=== PATIENT | female | born 2000 | race African-American/Black ===

== ENCOUNTER 2022-11-14 18:43 | Emergency (ER) | payer SELFPAY ==
[2022-11-14 19:36] LABS: Bilirubin Neg (Negative); Blood, Urine 150 (Negative); Glucose, Urine (Dipstick) Normal (Negative); Ketone, Urine Negative (Negative); Leukocyte 500 (Negative); Nitrite Negative (Negative); Protein, Urine (Dipstick) 15 mg/dl (Neg-Trace); Urobilinogen Normal mg/dL (Less than 2)
[2022-11-14 19:49] LABS: Clarity Cloudy (Clear)
[2022-11-14 19:52] LABS: Bacteria/HPF 2+ HPF (None Seen); RBC/HPF 0-3 HPF (0-3)
[2022-11-14 20:32] LABS: #Eosinphils 0.1 10x3/uL (0.0-0.5); #Monocytes 0.8 10x3/uL (0.0-1.1); #Neutrophils 3.6 10x3/uL (1.5-8.4); %Basophils 0.6 % (0.0-2.0); %Eosinophils 1.2 % (0.0-6.0); %Monocytes 10.6 % (0.0-10.0); %Neutrophils 49.3 % (40.0-75.0); Mean Corpuscular HGB CONC 35.5 g/dL (32.0-36.0); Mean Corpuscular Hemoglobin 30.2 pg (27.0-33.0); Mean Corpuscular Volume 84.9 fl (81.6-98.3); Mean Platelet Volume 10.3 fl (7.4-10.4); Platelet Count 318 10x3/uL (150-450); Red Blood Cell (RBC) Count 3.98 10x6/uL (3.90-5.03); White Blood Cell (WBC) Count 7.3 10x3/uL (3.5-10.5)
[2022-11-14 22:14] LABS: HIV (1/2) Antibody/Antigen Non-Reactive (NonReactive); HIV 1/2 INDEX 0.12 S/CO (<1.00)
== END 2022-11-14 22:48 | disposition home or self-care (01) ==
LOC: CSHERS 18:43
DX: O20.0 Threatened abortion (principal); R82.71 Bacteriuria; Z3A.01 Less than 8 weeks gestation of pregnancy
CPT/HCPCS: 36415; 76856; 81003; 81015; 84702; 85025; 86900; 86901; 87389; 90384; 96372

== ENCOUNTER 2022-11-17 19:22 | Emergency (ER) | payer SELFPAY ==
[2022-11-17 19:52] LABS: #Eosinphils 0.1 10x3/uL (0.0-0.5); #Monocytes 0.7 10x3/uL (0.0-1.1); #Neutrophils 3.9 10x3/uL (1.5-8.4); %Basophils 0.5 % (0.0-2.0); %Eosinophils 0.9 % (0.0-6.0); %Lymphocytes 39.1 % (18.0-47.0); %Monocytes 9.3 % (0.0-10.0); %Neutrophils 49.8 % (40.0-75.0); Hemoglobin 12.1 g/dL (12.0-15.5); Mean Corpuscular HGB CONC 35.8 g/dL (32.0-36.0); Mean Corpuscular Hemoglobin 30.5 pg (27.0-33.0); Mean Corpuscular Volume 85.1 fl (81.6-98.3); Mean Platelet Volume 10.5 fl (7.4-10.4); Platelet Count 330 10x3/uL (150-450); RBC Distribution Width 12.6 % (11.5-14.5); Red Blood Cell (RBC) Count 3.97 10x6/uL (3.90-5.03); White Blood Cell (WBC) Count 7.9 10x3/uL (3.5-10.5)
[2022-11-17 20:00] LABS: BHCG - Serum POSITIVE (NEGATIVE); Pregs Control Background? CLEAR/WHITE (CLR/WHITE); Pregs Control Bar Appear? YES (CONTROL BAR)
[2022-11-17 20:04] LABS: Bilirubin Neg (Negative); Blood, Urine 250 (Negative); Clarity Clear (Clear); Glucose, Urine (Dipstick) Normal (Negative); Ketone, Urine 150 mg/dL (Negative); Leukocyte 25 (Negative); Nitrite Negative (Negative); Protein, Urine (Dipstick) Negative (Neg-Trace); Urobilinogen Normal mg/dL (Less than 2)
[2022-11-17 20:08] LABS: ALT (SGPT) 10 U/L (8-55); AST (SGOT) 16 U/L (5-34); Albumin 4.5 g/dL (3.5-5.0); Alkaline Phosphatase 50 U/L (40-110); Anion Gap 13 mmol/L (10-20); BUN (Urea Nitrogen) 7 mg/dL (7.0-18.7); Bilirubin, Total 1.2 mg/dL (0.2-1.2); Calc. Creatinine Clearance 0 mL/min (70-130); Calcium 9.6 mg/dL (7.8-10.44); Carbon Dioxide 21 mmol/L (22-29); Chloride 107 mmol/L (98-107); Estimated GFR 100; Globulin 3.8 g/dL (2.4-3.5); Glucose 84 mg/dL (70-105); Protein, Total 8.3 g/dL (6.0-8.3); Sodium 137 mmol/L (136-145)
[2022-11-17 20:20] LABS: Bacteria/HPF 1+ HPF (None Seen); WBC/HPF 21-50 HPF (0-3)
== END 2022-11-17 21:08 | disposition home or self-care (01) ==
LOC: CSHERS 19:22
DX: O20.0 Threatened abortion (principal); O99.891 Other specified diseases and conditions complicating pregnancy; R82.71 Bacteriuria; Z3A.01 Less than 8 weeks gestation of pregnancy
CPT/HCPCS: 36415; 80053; 81003; 81015; 84702; 84703; 85025; 99284

== ENCOUNTER 2023-01-18 14:11 | Emergency (ER) | payer OTHER, SELFPAY ==
[2023-01-18 15:55] LABS: #Monocytes 0.7 10x3/uL (0.0-1.1); #Neutrophils 4.9 10x3/uL (1.5-8.4); %Basophils 0.3 % (0.0-2.0); %Eosinophils 0.4 % (0.0-6.0); %Lymphocytes 25.1 % (18.0-47.0); %Monocytes 8.6 % (0.0-10.0); %Neutrophils 64.9 % (40.0-75.0); Hemoglobin 10.9 g/dL (12.0-15.5); Mean Corpuscular HGB CONC 35.4 g/dL (32.0-36.0); Mean Corpuscular Hemoglobin 30.3 pg (27.0-33.0); Mean Corpuscular Volume 85.6 fl (81.6-98.3); Mean Platelet Volume 10.5 fl (7.4-10.4); Platelet Count 272 10x3/uL (150-450); White Blood Cell (WBC) Count 7.6 10x3/uL (3.5-10.5)
[2023-01-18 16:07] LABS: ALT (SGPT) 25 U/L (8-55); AST (SGOT) 21 U/L (5-34); Albumin 3.7 g/dL (3.5-5.0); Alkaline Phosphatase 39 U/L (40-110); Anion Gap 12 mmol/L (10-20); BUN (Urea Nitrogen) Less than 4 mg/dL (7.0-18.7); Bilirubin, Total 0.8 mg/dL (0.2-1.2); Calc. Creatinine Clearance 0 mL/min (70-130); Calcium 9.3 mg/dL (7.8-10.44); Carbon Dioxide 20 mmol/L (22-29); Chloride 108 mmol/L (98-107); Estimated GFR 125; Globulin 3.5 g/dL (2.4-3.5); Glucose 78 mg/dL (70-105); Potassium 3.2 mmol/L (3.5-5.1); Protein, Total 7.2 g/dL (6.0-8.3); Sodium 137 mmol/L (136-145)
== END 2023-01-18 17:33 | disposition home or self-care (01) ==
LOC: CSHERS 14:11
DX: S30.1XXA Contusion of abdominal wall, initial encounter (principal); V89.2XXA Person injured in unspecified motor-vehicle accident, traffic, initial encounter
CPT/HCPCS: 76815; 80053; 85025; 86900; 86901

== ENCOUNTER 2023-07-14 13:08 | Inpatient (IN) | payer MEDICAID, OTHER ==
[2023-07-14] MEDS ORDERED: Carboprost 250 MCG/ML AMP IM PRN (13:34)
[2023-07-14] MEDS ORDERED: fentaNYL 50 mcg/mL 1 mL Vial SLOW IVP PRN (13:34)
[2023-07-14] MEDS ORDERED: hydrALAZINE 20 MG/ML VIAL SLOW IVP PRN (13:34)
[2023-07-14] MEDS ORDERED: Diphenoxylate HCl/Atropine Tablet PO PRN (13:34)
[2023-07-14] MEDS ORDERED: Methylergonovine 0.2 MG/ML VIAL IM PRN (13:34)
[2023-07-14] MEDS ORDERED: Lidocaine 1% (PF) 30 ML VIAL SC PRN (13:34)
[2023-07-14] MEDS ORDERED: Ondansetron PF 4 MG/2 ML Vial IVP PRN (13:34)
[2023-07-14] MEDS ORDERED: HYDROcodone/Acetaminophen 5/325 mg Tablet PO PRN (13:34)
[2023-07-14] MEDS ORDERED: Promethazine HCl 25 MG/ML VIAL IM PRN (13:34)
[2023-07-14] MEDS ORDERED: Misoprostol 200 MCG TAB PR PRN (13:34)
[2023-07-14] MEDS ORDERED: Acetaminophen 500 MG TAB PO PRN (13:34)
[2023-07-14] MEDS ORDERED: Tranexamic Acid 1,000 MG/10 ML VIAL IVP PRN (13:34)
[2023-07-14] MEDS ORDERED: Ibuprofen 800 MG TAB PO PRN (13:34)
[2023-07-14] MEDS ORDERED: Lactated Ringer's 1,000 ML IV SCH (13:45)
[2023-07-14] MEDS ORDERED: NS w/ Oxytocin 30 units 500 ML IV SCH ×3 (13:45)
[2023-07-14 14:59] LABS: Hematocrit 26.6 % (34.9-44.5); Hemoglobin 8.6 g/dL (12.0-15.5); Mean Corpuscular HGB CONC 32.3 g/dL (32.0-36.0); Mean Corpuscular Hemoglobin 23.1 pg (27.0-33.0); Mean Corpuscular Volume 71.3 fl (81.6-98.3); Platelet Count 313 10x3/uL (150-450); RBC Distribution Width 16.8 % (11.5-14.5); Red Blood Cell (RBC) Count 3.73 10x6/uL (3.90-5.03)
[2023-07-14 15:18] VITALS: BMI 37.9
[2023-07-14 15:28] LABS: HBSAg Index 0.19 S/CO (0-0.99); Hep B Surf Ag - L&D Non-Reactive S/CO (NonReactive); Syphilis Antibody Nonreactive (Nonreactive); Syphilis Antibody Index 0.16 S/CO (<1.00 Non-Reactive)
[2023-07-14] MEDS: Misoprostol 100 MCG TAB PO SCH ×2 (15:32→19:53)
[2023-07-15] MEDS ORDERED: fentaNYL/Ropivacaine Epidural 100 ML ONE (03:09)
[2023-07-15] MEDS ORDERED: Acetaminophen 325 MG TAB PO PRN (04:07)
[2023-07-15] MEDS ORDERED: Moisturizing Cream (Eucerin) 113 GM JAR TOP PRN (04:07)
[2023-07-15] MEDS ORDERED: diphenhydrAMINE 50 MG/ML VIAL IVP PRN (04:07)
[2023-07-15] MEDS ORDERED: ePHEDrine Sulfate 50 MG/10 ML VIAL SLOW IVP PRN (04:07)
[2023-07-15] MEDS ORDERED: Naloxone HCl 0.4 mg/ml Vial IVP PRN ×2 (04:07)
[2023-07-15] MEDS ORDERED: Promethazine HCl 25 MG/ML VIAL IM PRN (04:07)
[2023-07-15] MEDS ORDERED: Lactated Ringer's 500 ML IV PRN (04:07)
[2023-07-15] MEDS ORDERED: Ondansetron PF 4 MG/2 ML Vial IVP PRN ×2 (04:07→14:57)
[2023-07-15] MEDS ORDERED: Communication Order-Pharmacy FS SCH (04:15)
[2023-07-15] MEDS ORDERED: fentaNYL 2 mcg/Ropivacaine 0.2% Epidural 100 ML CADD EPIDURAL SCH (04:15)
[2023-07-15] MEDS ORDERED: Preparation H Ointment 28 GM TUBE PR PRN (14:57)
[2023-07-15] MEDS ORDERED: Milk Of Magnesia 30 ML UDCUP PO PRN (14:57)
[2023-07-15] MEDS ORDERED: Boostrix 0.5 ML (Tdap) VIAL (>/=7 yrs of age) IM ONE (14:57)
[2023-07-15] MEDS ORDERED: hydrALAZINE 20 MG/ML VIAL SLOW IVP PRN (14:57)
[2023-07-15] MEDS ORDERED: Bisacodyl 10 MG SUPP PR PRN (14:57)
[2023-07-15] MEDS ORDERED: NS w/ Oxytocin 30 units 500 ML IV SCH (14:57)
[2023-07-15] MEDS ORDERED: Benzocaine-Menthol 82.5 ML CAN TOP PRN (14:57)
[2023-07-15] MEDS ORDERED: diphenhydrAMINE 25 MG CAP PO PRN (14:57)
[2023-07-15] MEDS ORDERED: HYDROcodone/Acetaminophen 5/325 mg Tablet PO PRN (14:57)
[2023-07-15] MEDS: Misoprostol 100 MCG TAB PO SCH (18:00)
[2023-07-15] MEDS: Ibuprofen 800 MG TAB PO SCH (18:02)
[2023-07-15] MEDS: Ferrous Sulfate 325 MG TAB PO SCH (18:04)
[2023-07-16] MEDS: Docusate 100 MG CAP PO SCH ×2 (00:17→09:11)
[2023-07-16] MEDS: Ibuprofen 800 MG TAB PO SCH ×3 (00:17→18:10)
[2023-07-16] MEDS: Prenatal Vitamin 1 TAB PO SCH (09:11)
[2023-07-16] MEDS: Ferrous Sulfate 325 MG TAB PO SCH ×2 (09:12→18:10)
[2023-07-17] MEDS: Ibuprofen 800 MG TAB PO SCH ×2 (00:01→08:27)
[2023-07-17] MEDS: Docusate 100 MG CAP PO SCH (08:27)
[2023-07-17] MEDS: Ferrous Sulfate 325 MG TAB PO SCH (08:28)
[2023-07-17] MEDS: Prenatal Vitamin 1 TAB PO SCH (08:28)
[2023-07-17 08:41] VITALS: BP 135/87; TEMP 98.6
== END 2023-07-17 11:30 | disposition home or self-care (01) | DRG 807 ==
LOC: CSHLD/OP 13:08 → CSHLD 13:36 → CSHANTE 07-15 15:27
PROVIDERS: ADMIT Family Medicine; ATTEND Family Medicine
PROC: 10E0XZZ Delivery of Products of Conception, External Approach (ICD-10-PCS; principal; 2023-07-15)
PROC: 0UQMXZZ Repair Vulva, External Approach (ICD-10-PCS; 2023-07-15)
PROC: 0HQ9XZZ Repair Perineum Skin, External Approach (ICD-10-PCS; 2023-07-15)
DX: O76 Abnormality in fetal heart rate and rhythm complicating labor and delivery (principal); O69.81X0 Labor and delivery complicated by cord around neck, without compression, not applicable or unspecified; O70.0 First degree perineal laceration during delivery; O71.82 Other specified trauma to perineum and vulva; Z3A.40 40 weeks gestation of pregnancy; Z37.0 Single live birth; O48.0 Post-term pregnancy; O26.893 Other specified pregnancy related conditions, third trimester; Z79.899 Other long term (current) drug therapy; Z67.41 Type O blood, Rh negative
CPT/HCPCS: 36415; 51702; 85027; 86780; 86850; 86870; 86900; 86901; 86922; 87340; 99285; J2550; J2590; J3010; J3490